=== PATIENT | male | born 1970 | race Caucasian/White ===

== ENCOUNTER 2021-09-26 10:58 | Outpatient (REF) | payer OTHER, SELFPAY | END 2021-09-26 10:59 | disposition home or self-care (01) | LOC: HO.BBR 10:58 | PROVIDERS: Visit Provider Nurse Practitioner | DX: Z13.89 Encounter for screening for other disorder (principal) ==

== ENCOUNTER 2021-11-17 15:08 | Outpatient (REF) | payer OTHER, SELFPAY | END 2021-11-17 15:09 | disposition home or self-care (01) | LOC: HO.BBR 15:08 | PROVIDERS: Visit Provider Nurse Practitioner | DX: Z13.89 Encounter for screening for other disorder (principal) ==

== ENCOUNTER 2021-12-04 11:04 | Outpatient (REF) | payer OTHER, SELFPAY | END 2021-12-04 11:05 | disposition home or self-care (01) | LOC: HO.BBR 11:04 | PROVIDERS: Visit Provider Nurse Practitioner | DX: Z13.89 Encounter for screening for other disorder (principal) ==

== ENCOUNTER 2021-12-18 08:59 | Outpatient (REF) | payer OTHER, SELFPAY | END 2021-12-18 09:00 | disposition home or self-care (01) | LOC: HO.BBR 08:59 | PROVIDERS: Visit Provider Nurse Practitioner | DX: Z13.89 Encounter for screening for other disorder (principal) ==

== ENCOUNTER 2022-01-08 08:55 | Outpatient (REF) | payer OTHER, SELFPAY | END 2022-01-08 08:56 | disposition home or self-care (01) | LOC: HO.BBR 08:55 | PROVIDERS: Visit Provider Nurse Practitioner | DX: Z13.89 Encounter for screening for other disorder (principal) ==

== ENCOUNTER 2022-04-18 08:07 | Outpatient (REF) | payer OTHER, SELFPAY | END 2022-04-18 08:08 | disposition home or self-care (01) | LOC: HO.BBR 08:07 | PROVIDERS: Visit Provider Nurse Practitioner | DX: Z13.89 Encounter for screening for other disorder (principal) ==

== ENCOUNTER 2022-05-02 08:07 | Outpatient (REF) | payer OTHER, SELFPAY | END 2022-05-02 08:08 | disposition home or self-care (01) | LOC: HO.BBR 08:07 | PROVIDERS: Visit Provider Nurse Practitioner | DX: Z13.89 Encounter for screening for other disorder (principal) ==

== ENCOUNTER → 2025-07-13 11:27 | Outpatient (BNVA) | payer SELFPAY | PROVIDERS: Visit Provider Physician Assistant Medical | DX: S01.311A Laceration without foreign body of right ear, initial encounter (principal); R51.9 Headache, unspecified; S16.1XXA Strain of muscle, fascia and tendon at neck level, initial encounter; W20.8XXA Other cause of strike by thrown, projected or falling object, initial encounter; Z23 Encounter for immunization; Z02.79 Encounter for issue of other medical certificate | CPT/HCPCS: 90715; 99203 ==

== ENCOUNTER → 2025-07-15 09:10 | Outpatient (BNVA) | payer OTHER, SELFPAY | PROVIDERS: PCP Internal Medicine; Visit Provider Physician Assistant Medical | DX: S01.311A Laceration without foreign body of right ear, initial encounter (principal); S16.1XXA Strain of muscle, fascia and tendon at neck level, initial encounter; W20.8XXA Other cause of strike by thrown, projected or falling object, initial encounter; R51.9 Headache, unspecified; Z02.79 Encounter for issue of other medical certificate | CPT/HCPCS: 99213 ==